=== PATIENT | male | born 1985 | race Caucasian/White ===

== ENCOUNTER 2025-05-02 08:09 | Outpatient (CLI) | payer OTHER, SELFPAY | END 2025-05-02 08:10 | disposition home or self-care (01) | LOC: INJ CL 08:10 | PROVIDERS: PCP Nurse Practitioner Family; Visit Provider Family Medicine | DX: M54.16 Radiculopathy, lumbar region (principal); M51.26 Other intervertebral disc displacement, lumbar region | CPT/HCPCS: 64483; Q9966 ==

== ENCOUNTER 2025-08-01 14:52 | Outpatient (CLI) | payer OTHER, SELFPAY | END 2025-08-01 14:53 | disposition home or self-care (01) | PROVIDERS: PCP Nurse Practitioner Family; Visit Provider Nurse Practitioner Family | DX: Z01.818 Encounter for other preprocedural examination (principal) | CPT/HCPCS: 80048; 85025 ==